=== PATIENT | female | born 1935 | race Caucasian/White ===

== ENCOUNTER 2017-04-18 12:32 | Inpatient (IN) | payer MEDICAID, OTHER ==
[~2017-04-18] VITALS: Ht 157.5 cm; Wt 78.6 kg
[~2017-04-18 12:32] MED LIST: CARV25TA55 PO; FAMO20TA8 PO; FERR-31 PO; FOLI0.8T2 PO; INSU100V11 SQ; INSU3INS5 SQ; NOR10 PO; OXYC-133 PO
[2017-04-18 12:40] VITALS: BP_SYST 161
[2017-04-18] MEDS ORDERED: NACL 0.9% 1,000 ML IV ONE (12:41)
[2017-04-18 13:22] LABS: BASOPHILS % (AUTO) 0.3 % (0.0-2.0); EOSINOPHILS # (AUTO) 0.4 K/uL (0.0-0.4); EOSINOPHILS % (AUTO) 2.5 % (0.0-4.0); HEMATOCRIT 30.6 % (36-48); HEMOGLOBIN 9.6 g/dL (12.0-16.0); LYMPHOCYTES # (AUTO) 2.1 K/uL (1.0-5.5); LYMPHOCYTES % (AUTO) 13.9 % (20.5-51.5); MEAN CORPUSCULAR HEMOGLOBIN 27 pg (27-31); MEAN CORPUSCULAR HGB CONC 31 % (32-36); MEAN CORPUSCULAR VOLUME 86 fL (79.0-98.0); MONOCYTES # (AUTO) 1.1 K/uL (0.0-1.0); MONOCYTES % (AUTO) 7.2 % (1.7-9.3); NEUTROPHILS # (AUTO) 11.4 K/uL (1.8-7.7); NEUTROPHILS % (AUTO) 76.1 % (40.0-70.0); PLATELET COUNT (AUTO) 195 K/uL (130-430); RED BLOOD CELL COUNT(AUTO) 3.57 MIL/uL (4.2-6.2); RED CELL DISTRIBUTION WIDTH 16.9 % (9.0-15.0)
[2017-04-18 13:30] LABS: ANION GAP 9 (5-15); CALCIUM 8.2 mg/dL (8.4-11.0); CHLORIDE 101 mmol/L (98-107); CREATININE 2.47 mg/dL (0.55-1.30); GLUCOSE 207 mg/dL (70-99); POTASSIUM 3.5 mmol/L (3.5-5.1); SODIUM SERUM 140 mmol/L (136-145); UREA NITROGEN, BLOOD 21 mg/dL (8-21)
[2017-04-18 13:32] LABS: INR 1.1 (0.8-1.2); PROTHROMBIN TIME 12.3 SECS (9.5-12.5)
[2017-04-18 13:35] LABS: ASPARTATE AMINOTRANSFERASE 10 U/L (10-37); TOTAL BILIRUBIN 0.4 mg/dL (0.0-1.0); TOTAL PROTEIN, SERUM 6.3 g/dL (6.4-8.3)
[2017-04-18 13:36] LABS: AMYLASE 92 U/L (0-100); LIPASE 39 U/L (73-393)
[2017-04-18 13:49] LABS: ALANINE AMINOTRANSFERASE 6 U/L (12-78)
[2017-04-18] MEDS ORDERED: HYDR-1189 PO (15:12)
[2017-04-18] MEDS ORDERED: ZOLP5TAB7 PO (15:12)
[2017-04-18] MEDS ORDERED: ALPR0.5T8 (15:12)
[2017-04-18] MEDS ORDERED: PRED10TA PO (15:12)
[2017-04-18] MEDS ORDERED: VANCOMYCIN HCL 1,000 MG in NS 250 ML IV ONE (19:30)
[2017-04-18] MEDS ORDERED: LEVOFLOXACIN 500 MG/D5W 100 ML IV ONE ×2 (19:30→20:44)
[2017-04-18 19:45] VITALS: BP_SYST 111
[2017-04-18 20:03] VITALS: BP_SYST 111
[2017-04-18] MEDS ORDERED: HYDROcodone/ACETAMIN 5-325 MG TAB (NORCO/ VICODIN) PO SCH (20:15)
[2017-04-18] MEDS ORDERED: OXYCODONE/ACETAMINOPHEN *10*mg/325 mg TABLET PO SCH (20:15)
[2017-04-18] MEDS ORDERED: MILK OF MAGNESIA 30 ML UDC PO PRN (20:15)
[2017-04-18] MEDS ORDERED: LevALBUTEROL HCL 1.25 MG/0.5 ML *CONC.* VIAL.NEB (XOPENEX CONC.) INH PRN (20:30)
[2017-04-18] MEDS ORDERED: ACETAMINOPHEN 500 MG TABLET PO PRN (20:30)
[2017-04-18] MEDS ORDERED: VANCOMYCIN HCL 1000 MG/VIAL IV ONE (20:45)
[2017-04-18] MEDS ORDERED: MUPIROCIN NASAL 2% OINT. 1 GM NS SCH (21:00)
[2017-04-18] MEDS: LevALBUTEROL HCL 1.25 MG/0.5 ML *CONC.* VIAL.NEB (XOPENEX CONC.) INH SCH (23:42)
[2017-04-18 23:44] VITALS: BP_SYST 111
[2017-04-18] MEDS: FERROUS SULFATE 325 MG TABLET.DR PO SCH (23:57)
[2017-04-18] MEDS: MEGESTROL ACETATE 400 MG/10 ML UDC PO SCH (23:57)
[2017-04-18] MEDS: ZOLPIDEM TARTRATE 5 MG TABLET PO PRN (23:58)
[2017-04-19] MEDS: INSULIN REGULAR, HUMAN 100 UNITS/ML, 10 ML VIAL (novoLIN R) SUBCUT PRN ×3 (00:10→21:16)
[2017-04-19] MEDS: HYDROcodone/ACETAMIN 5-325 MG TAB (NORCO/ VICODIN) PO PRN ×5 (05:51→21:00)
[2017-04-19 06:44] LABS: ANION GAP 7 (5-15); CALCIUM 7.9 mg/dL (8.4-11.0); CHLORIDE 103 mmol/L (98-107); CREATININE 2.86 mg/dL (0.55-1.30); GLUCOSE 100 mg/dL (70-99); POTASSIUM 3.9 mmol/L (3.5-5.1); SODIUM SERUM 138 mmol/L (136-145); UREA NITROGEN, BLOOD 25 mg/dL (8-21)
[2017-04-19 06:55] LABS: EOSINOPHILS # (AUTO) 0.4 K/uL (0.0-0.4); EOSINOPHILS % (AUTO) 3.7 % (0.0-4.0); HEMATOCRIT 27.6 % (36-48); HEMOGLOBIN 8.5 g/dL (12.0-16.0); LYMPHOCYTES % (AUTO) 16.1 % (20.5-51.5); MEAN CORPUSCULAR HEMOGLOBIN 27 pg (27-31); MEAN CORPUSCULAR HGB CONC 31 % (32-36); MEAN CORPUSCULAR VOLUME 88 fL (79.0-98.0); MONOCYTES # (AUTO) 0.9 K/uL (0.0-1.0); MONOCYTES % (AUTO) 7.3 % (1.7-9.3); NEUTROPHILS # (AUTO) 8.8 K/uL (1.8-7.7); NEUTROPHILS % (AUTO) 72.9 % (40.0-70.0); PLATELET COUNT (AUTO) 188 K/uL (130-430); RED BLOOD CELL COUNT(AUTO) 3.15 MIL/uL (4.2-6.2); RED CELL DISTRIBUTION WIDTH 16.6 % (9.0-15.0); WHITE BLOOD COUNT (AUTO) 12.1 K/uL (4.8-10.8)
[2017-04-19] MEDS: CARVEDILOL 6.25 MG TABLET (COREG) PO SCH (10:02)
[2017-04-19] MEDS: PREDNISONE 10 MG TABLET PO SCH (10:02)
[2017-04-19] MEDS: amLODIPine BESYLATE 10 MG TABLET PO SCH (10:03)
[2017-04-19] MEDS: FERROUS SULFATE 325 MG TABLET.DR PO SCH ×2 (10:03→21:00)
[2017-04-19] MEDS: MEGESTROL ACETATE 400 MG/10 ML UDC PO SCH ×2 (10:03→20:59)
[2017-04-19] MEDS: FAMOTIDINE 20 MG TABLET PO SCH (11:14)
[2017-04-19] MEDS: ONDANSETRON HCL 4 MG/2 ML VIAL IVP PRN (11:15)
[2017-04-19] MEDS: MUPIROCIN 2% TOPICAL OINTMENT 22 GM TP SCH ×2 (11:17→21:00)
[2017-04-19 12:20] VITALS: BP_SYST 128
[2017-04-19] MEDS: LevALBUTEROL HCL 1.25 MG/0.5 ML *CONC.* VIAL.NEB (XOPENEX CONC.) INH SCH ×3 (15:30→23:27)
[2017-04-19 16:00] VITALS: BP_SYST 155
[2017-04-19] MEDS: DIPHENHYDRAMINE INJ 50 MG/ML VIAL IVP PRN (16:29)
[2017-04-19] MEDS: ZOLPIDEM TARTRATE 5 MG TABLET PO PRN (20:59)
[2017-04-19 21:58] VITALS: BP_SYST 120
[2017-04-20 01:10] VITALS: BP_SYST 120
[2017-04-20] MEDS: DIPHENHYDRAMINE INJ 50 MG/ML VIAL IVP PRN ×2 (03:05→11:18)
[2017-04-20] MEDS: LevALBUTEROL HCL 1.25 MG/0.5 ML *CONC.* VIAL.NEB (XOPENEX CONC.) INH SCH ×3 (07:30→23:27)
[2017-04-20 08:00] VITALS: BP_SYST 133
[2017-04-20] MEDS: FAMOTIDINE 20 MG TABLET PO SCH (08:33)
[2017-04-20] MEDS: FERROUS SULFATE 325 MG TABLET.DR PO SCH ×2 (08:33→20:27)
[2017-04-20] MEDS: ONDANSETRON HCL 4 MG/2 ML VIAL IVP PRN (08:36)
[2017-04-20] MEDS: CARVEDILOL 6.25 MG TABLET (COREG) PO SCH (08:36)
[2017-04-20] MEDS: amLODIPine BESYLATE 10 MG TABLET PO SCH (08:38)
[2017-04-20] MEDS: MUPIROCIN 2% TOPICAL OINTMENT 22 GM TP SCH ×2 (08:39→20:29)
[2017-04-20] MEDS: MEGESTROL ACETATE 400 MG/10 ML UDC PO SCH ×2 (10:23→20:23)
[2017-04-20] MEDS: PREDNISONE 10 MG TABLET PO SCH (10:23)
[2017-04-20] MEDS: HYDROcodone/ACETAMIN 5-325 MG TAB (NORCO/ VICODIN) PO PRN ×2 (11:20→20:07)
[2017-04-20 12:00] VITALS: BP_SYST 112
[2017-04-20 17:17] VITALS: BP_SYST 115
[2017-04-20] MEDS: INSULIN REGULAR, HUMAN 100 UNITS/ML, 10 ML VIAL (novoLIN R) SUBCUT PRN ×2 (17:47→20:31)
[2017-04-20 20:00] VITALS: BP_SYST 123
[2017-04-20] MEDS: VANCOMYCIN HCL 750 MG in NS 250 ML IV SCH (20:25)
[2017-04-20] MEDS: ANTIFUNGAL CLEAR OINTMENT TP SCH (20:51)
[2017-04-21 00:06] VITALS: BP_SYST 130
[2017-04-21 03:39] VITALS: BP_SYST 133
[2017-04-21] MEDS: HYDROcodone/ACETAMIN 5-325 MG TAB (NORCO/ VICODIN) PO PRN ×3 (06:18→21:42)
[2017-04-21] MEDS: INSULIN REGULAR, HUMAN 100 UNITS/ML, 10 ML VIAL (novoLIN R) SUBCUT PRN ×4 (06:26→21:18)
[2017-04-21] MEDS: LevALBUTEROL HCL 1.25 MG/0.5 ML *CONC.* VIAL.NEB (XOPENEX CONC.) INH SCH ×3 (07:00→23:07)
[2017-04-21 08:16] VITALS: BP_SYST 143
[2017-04-21 08:24] LABS: BASOPHILS % (AUTO) 0.1 % (0.0-2.0); EOSINOPHILS # (AUTO) 0.2 K/uL (0.0-0.4); EOSINOPHILS % (AUTO) 1.3 % (0.0-4.0); HEMATOCRIT 27.3 % (36-48); HEMOGLOBIN 8.5 g/dL (12.0-16.0); LYMPHOCYTES # (AUTO) 1.7 K/uL (1.0-5.5); LYMPHOCYTES % (AUTO) 14.6 % (20.5-51.5); MEAN CORPUSCULAR HEMOGLOBIN 27 pg (27-31); MEAN CORPUSCULAR HGB CONC 31 % (32-36); MEAN CORPUSCULAR VOLUME 87 fL (79.0-98.0); MONOCYTES # (AUTO) 0.7 K/uL (0.0-1.0); MONOCYTES % (AUTO) 5.5 % (1.7-9.3); NEUTROPHILS # (AUTO) 9.3 K/uL (1.8-7.7); NEUTROPHILS % (AUTO) 78.5 % (40.0-70.0); PLATELET COUNT (AUTO) 229 K/uL (130-430); RED BLOOD CELL COUNT(AUTO) 3.16 MIL/uL (4.2-6.2); WHITE BLOOD COUNT (AUTO) 11.9 K/uL (4.8-10.8)
[2017-04-21 08:33] LABS: ANION GAP 7 (5-15); CALCIUM 8.3 mg/dL (8.4-11.0); CHLORIDE 100 mmol/L (98-107); CREATININE 3.04 mg/dL (0.55-1.30); GLUCOSE 141 mg/dL (70-99); POTASSIUM 4.2 mmol/L (3.5-5.1); SODIUM SERUM 136 mmol/L (136-145); UREA NITROGEN, BLOOD 31 mg/dL (8-21)
[2017-04-21] MEDS: MEGESTROL ACETATE 400 MG/10 ML UDC PO SCH ×2 (09:09→21:14)
[2017-04-21] MEDS: PREDNISONE 10 MG TABLET PO SCH (09:11)
[2017-04-21] MEDS: amLODIPine BESYLATE 10 MG TABLET PO SCH (09:11)
[2017-04-21] MEDS: FERROUS SULFATE 325 MG TABLET.DR PO SCH ×2 (09:11→21:14)
[2017-04-21] MEDS: FAMOTIDINE 20 MG TABLET PO SCH (09:11)
[2017-04-21] MEDS: CARVEDILOL 6.25 MG TABLET (COREG) PO SCH (09:12)
[2017-04-21] MEDS: BALSAM PERU/CASTOR OIL 60 GM OINT...G. TP SCH (09:12)
[2017-04-21] MEDS: MUPIROCIN 2% TOPICAL OINTMENT 22 GM TP SCH ×2 (09:12→21:00)
[2017-04-21] MEDS: ANTIFUNGAL CLEAR OINTMENT TP SCH ×2 (09:13→21:14)
[2017-04-21 13:02] VITALS: BP_SYST 131
[2017-04-21 17:26] VITALS: BP_SYST 113
[2017-04-21 20:00] VITALS: BP_SYST 148
[2017-04-22] VITALS (7 sets, daily range): BP systolic 122–150
[2017-04-22] MEDS: HYDROcodone/ACETAMIN 5-325 MG TAB (NORCO/ VICODIN) PO PRN ×4 (06:32→23:44)
[2017-04-22] MEDS: LevALBUTEROL HCL 1.25 MG/0.5 ML *CONC.* VIAL.NEB (XOPENEX CONC.) INH SCH ×2 (08:14→18:05)
[2017-04-22] MEDS: PREDNISONE 10 MG TABLET PO SCH (08:40)
[2017-04-22] MEDS: CARVEDILOL 6.25 MG TABLET (COREG) PO SCH (08:40)
[2017-04-22] MEDS: BALSAM PERU/CASTOR OIL 60 GM OINT...G. TP SCH (08:40)
[2017-04-22] MEDS: FERROUS SULFATE 325 MG TABLET.DR PO SCH ×2 (08:40→21:00)
[2017-04-22] MEDS: FAMOTIDINE 20 MG TABLET PO SCH (08:40)
[2017-04-22] MEDS: ANTIFUNGAL CLEAR OINTMENT TP SCH ×2 (08:43→21:00)
[2017-04-22] MEDS: amLODIPine BESYLATE 10 MG TABLET PO SCH (08:43)
[2017-04-22] MEDS: MUPIROCIN 2% TOPICAL OINTMENT 22 GM TP SCH ×2 (08:44→21:00)
[2017-04-22] MEDS: MEGESTROL ACETATE 400 MG/10 ML UDC PO SCH ×2 (08:45→21:00)
[2017-04-22] MEDS: INSULIN REGULAR, HUMAN 100 UNITS/ML, 10 ML VIAL (novoLIN R) SUBCUT PRN ×2 (11:08→17:17)
[2017-04-22] MEDS: DIPHENHYDRAMINE INJ 50 MG/ML VIAL IVP PRN (15:14)
[2017-04-22 19:56] LABS: PROTHROMBIN TIME 11.3 SECS (9.5-12.5)
[2017-04-22] MEDS: VANCOMYCIN HCL 750 MG in NS 250 ML IV SCH (21:00)
[2017-04-23] MEDS: LevALBUTEROL HCL 1.25 MG/0.5 ML *CONC.* VIAL.NEB (XOPENEX CONC.) INH SCH ×3 (00:53→15:54)
[2017-04-23 04:00] VITALS: BP_SYST 141
[2017-04-23 08:04] VITALS: BP_SYST 155
[2017-04-23] MEDS: MEGESTROL ACETATE 400 MG/10 ML UDC PO SCH ×2 (09:14→21:32)
[2017-04-23] MEDS: PREDNISONE 10 MG TABLET PO SCH (09:14)
[2017-04-23] MEDS: CARVEDILOL 6.25 MG TABLET (COREG) PO SCH (09:15)
[2017-04-23] MEDS: amLODIPine BESYLATE 10 MG TABLET PO SCH (09:16)
[2017-04-23] MEDS: FAMOTIDINE 20 MG TABLET PO SCH (09:16)
[2017-04-23] MEDS: FERROUS SULFATE 325 MG TABLET.DR PO SCH ×2 (09:16→21:32)
[2017-04-23] MEDS: BALSAM PERU/CASTOR OIL 60 GM OINT...G. TP SCH (09:18)
[2017-04-23] MEDS: HYDROcodone/ACETAMIN 5-325 MG TAB (NORCO/ VICODIN) PO PRN ×3 (09:18→19:14)
[2017-04-23] MEDS: MUPIROCIN 2% TOPICAL OINTMENT 22 GM TP SCH ×2 (09:19→21:32)
[2017-04-23] MEDS: ANTIFUNGAL CLEAR OINTMENT TP SCH ×2 (09:19→21:57)
[2017-04-23] MEDS: INSULIN REGULAR, HUMAN 100 UNITS/ML, 10 ML VIAL (novoLIN R) SUBCUT PRN ×3 (12:21→21:56)
[2017-04-23 12:43] VITALS: BP_SYST 134
[2017-04-23 15:54] VITALS: BP_SYST 135
[2017-04-23 17:38] VITALS: BP_SYST 135; BP_SYST 156
[2017-04-23 21:59] VITALS: BP_SYST 140
[2017-04-24] VITALS (7 sets, daily range): BP systolic 129–161
[2017-04-24] MEDS ORDERED: D5/0.45 NS 1,000 ML IV SCH
[2017-04-24] MEDS: LevALBUTEROL HCL 1.25 MG/0.5 ML *CONC.* VIAL.NEB (XOPENEX CONC.) INH SCH ×3 (02:19→15:18)
[2017-04-24 07:41] LABS: BASOPHILS % (AUTO) 0.1 % (0.0-2.0); EOSINOPHILS # (AUTO) 0.1 K/uL (0.0-0.4); EOSINOPHILS % (AUTO) 0.5 % (0.0-4.0); HEMOGLOBIN 9.4 g/dL (12.0-16.0); MEAN CORPUSCULAR HEMOGLOBIN 27 pg (27-31); MEAN CORPUSCULAR HGB CONC 32 % (32-36); MEAN CORPUSCULAR VOLUME 85 fL (79.0-98.0); MONOCYTES # (AUTO) 0.7 K/uL (0.0-1.0); MONOCYTES % (AUTO) 5.3 % (1.7-9.3); NEUTROPHILS # (AUTO) 10.2 K/uL (1.8-7.7); NEUTROPHILS % (AUTO) 79.1 % (40.0-70.0); PLATELET COUNT (AUTO) 234 K/uL (130-430); RED BLOOD CELL COUNT(AUTO) 3.52 MIL/uL (4.2-6.2); RED CELL DISTRIBUTION WIDTH 17.1 % (9.0-15.0)
[2017-04-24 07:43] LABS: ALANINE AMINOTRANSFERASE 7 U/L (12-78); ALBUMIN 2.4 g/dL (3.4-4.8); ANION GAP 9 (5-15); ASPARTATE AMINOTRANSFERASE 14 U/L (10-37); CALCIUM 8.2 mg/dL (8.4-11.0); CHLORIDE 94 mmol/L (98-107); CREATININE 3.36 mg/dL (0.55-1.30); GLUCOSE 115 mg/dL (70-99); POTASSIUM 5.3 mmol/L (3.5-5.1); SODIUM SERUM 130 mmol/L (136-145); TOTAL BILIRUBIN 0.4 mg/dL (0.0-1.0); TOTAL PROTEIN, SERUM 5.9 g/dL (6.4-8.3); UREA NITROGEN, BLOOD 41 mg/dL (8-21)
[2017-04-24] MEDS: amLODIPine BESYLATE 10 MG TABLET PO SCH (09:00)
[2017-04-24] MEDS: CARVEDILOL 6.25 MG TABLET (COREG) PO SCH (09:00)
[2017-04-24] MEDS: FAMOTIDINE 20 MG TABLET PO SCH (09:58)
[2017-04-24] MEDS: MEGESTROL ACETATE 400 MG/10 ML UDC PO SCH ×2 (09:58→21:11)
[2017-04-24] MEDS: PREDNISONE 10 MG TABLET PO SCH (09:59)
[2017-04-24] MEDS: FERROUS SULFATE 325 MG TABLET.DR PO SCH ×2 (09:59→21:11)
[2017-04-24] MEDS: HYDROcodone/ACETAMIN 5-325 MG TAB (NORCO/ VICODIN) PO PRN ×3 (10:01→19:27)
[2017-04-24] MEDS: MUPIROCIN 2% TOPICAL OINTMENT 22 GM TP SCH ×2 (10:02→21:20)
[2017-04-24] MEDS: BALSAM PERU/CASTOR OIL 60 GM OINT...G. TP SCH (10:02)
[2017-04-24] MEDS: ANTIFUNGAL CLEAR OINTMENT TP SCH ×2 (10:02→21:21)
[2017-04-24] MEDS: INSULIN REGULAR, HUMAN 100 UNITS/ML, 10 ML VIAL (novoLIN R) SUBCUT PRN ×3 (12:57→21:16)
[2017-04-24] MEDS: VANCOMYCIN HCL 750 MG in NS 250 ML IV SCH (21:13)
[2017-04-25 00:09] VITALS: BP_SYST 136
[2017-04-25] MEDS: LevALBUTEROL HCL 1.25 MG/0.5 ML *CONC.* VIAL.NEB (XOPENEX CONC.) INH SCH ×4 (02:40→23:00)
[2017-04-25 03:38] VITALS: BP_SYST 148
[2017-04-25] MEDS: DIPHENHYDRAMINE HCL 25 MG CAPSULE PO PRN ×2 (08:34→21:03)
[2017-04-25] MEDS: FAMOTIDINE 20 MG TABLET PO SCH (08:34)
[2017-04-25] MEDS: FERROUS SULFATE 325 MG TABLET.DR PO SCH ×2 (08:34→21:03)
[2017-04-25] MEDS: MEGESTROL ACETATE 400 MG/10 ML UDC PO SCH ×2 (08:35→21:03)
[2017-04-25] MEDS: amLODIPine BESYLATE 10 MG TABLET PO SCH (08:35)
[2017-04-25] MEDS: CARVEDILOL 6.25 MG TABLET (COREG) PO SCH (08:35)
[2017-04-25] MEDS: PREDNISONE 10 MG TABLET PO SCH (08:35)
[2017-04-25] MEDS: MUPIROCIN 2% TOPICAL OINTMENT 22 GM TP SCH ×2 (08:36→21:04)
[2017-04-25 08:50] LABS: BASOPHILS % (AUTO) 0.1 % (0.0-2.0); EOSINOPHILS # (AUTO) 0.1 K/uL (0.0-0.4); EOSINOPHILS % (AUTO) 0.5 % (0.0-4.0); LYMPHOCYTES # (AUTO) 1.7 K/uL (1.0-5.5); LYMPHOCYTES % (AUTO) 14.7 % (20.5-51.5); MEAN CORPUSCULAR HEMOGLOBIN 26 pg (27-31); MEAN CORPUSCULAR HGB CONC 31 % (32-36); MEAN CORPUSCULAR VOLUME 85 fL (79.0-98.0); MONOCYTES # (AUTO) 0.6 K/uL (0.0-1.0); MONOCYTES % (AUTO) 5.3 % (1.7-9.3); NEUTROPHILS # (AUTO) 9.5 K/uL (1.8-7.7); NEUTROPHILS % (AUTO) 79.4 % (40.0-70.0); PLATELET COUNT (AUTO) 244 K/uL (130-430); RED CELL DISTRIBUTION WIDTH 17.8 % (9.0-15.0); WHITE BLOOD COUNT (AUTO) 11.9 K/uL (4.8-10.8)
[2017-04-25] MEDS: HYDROcodone/ACETAMIN 5-325 MG TAB (NORCO/ VICODIN) PO PRN ×2 (08:50→14:30)
[2017-04-25 09:00] LABS: ANION GAP 8 (5-15); CHLORIDE 94 mmol/L (98-107); CREATININE 2.72 mg/dL (0.55-1.30); GLUCOSE 142 mg/dL (70-99); POTASSIUM 4.1 mmol/L (3.5-5.1); SODIUM SERUM 132 mmol/L (136-145); UREA NITROGEN, BLOOD 28 mg/dL (8-21)
[2017-04-25 09:29] VITALS: BP_SYST 144
[2017-04-25 11:32] VITALS: BP_SYST 114
[2017-04-25] MEDS: INSULIN REGULAR, HUMAN 100 UNITS/ML, 10 ML VIAL (novoLIN R) SUBCUT PRN ×3 (11:42→21:58)
[2017-04-25] MEDS: ANTIFUNGAL CLEAR OINTMENT TP SCH ×2 (14:35→21:05)
[2017-04-25] MEDS: BALSAM PERU/CASTOR OIL 60 GM OINT...G. TP SCH (14:36)
[2017-04-25 15:37] VITALS: BP_SYST 123
[2017-04-25] MEDS: ZOLPIDEM TARTRATE 5 MG TABLET PO PRN (22:33)
[2017-04-26] VITALS (7 sets, daily range): BP systolic 116–164
[2017-04-26 07:15] LABS: EOSINOPHILS # (AUTO) 0.1 K/uL (0.0-0.4); EOSINOPHILS % (AUTO) 0.6 % (0.0-4.0); HEMOGLOBIN 8.3 g/dL (12.0-16.0); LYMPHOCYTES # (AUTO) 1.6 K/uL (1.0-5.5); LYMPHOCYTES % (AUTO) 13.8 % (20.5-51.5); MEAN CORPUSCULAR HEMOGLOBIN 27 pg (27-31); MEAN CORPUSCULAR HGB CONC 32 % (32-36); MEAN CORPUSCULAR VOLUME 86 fL (79.0-98.0); MONOCYTES # (AUTO) 0.5 K/uL (0.0-1.0); MONOCYTES % (AUTO) 4.4 % (1.7-9.3); NEUTROPHILS # (AUTO) 9.3 K/uL (1.8-7.7); NEUTROPHILS % (AUTO) 81.2 % (40.0-70.0); PLATELET COUNT (AUTO) 229 K/uL (130-430); RED BLOOD CELL COUNT(AUTO) 3.04 MIL/uL (4.2-6.2); RED CELL DISTRIBUTION WIDTH 17.8 % (9.0-15.0); WHITE BLOOD COUNT (AUTO) 11.5 K/uL (4.8-10.8)
[2017-04-26 07:36] LABS: ANION GAP 8 (5-15); CALCIUM 7.7 mg/dL (8.4-11.0); CHLORIDE 91 mmol/L (98-107); CREATININE 3.65 mg/dL (0.55-1.30); GLUCOSE 140 mg/dL (70-99); PHOSPHORUS 4.7 mg/dL (2.7-4.5); POTASSIUM 4.4 mmol/L (3.5-5.1); SODIUM SERUM 127 mmol/L (136-145); UREA NITROGEN, BLOOD 44 mg/dL (8-21)
[2017-04-26] MEDS: LevALBUTEROL HCL 1.25 MG/0.5 ML *CONC.* VIAL.NEB (XOPENEX CONC.) INH SCH ×3 (08:08→23:16)
[2017-04-26] MEDS: HYDROcodone/ACETAMIN 5-325 MG TAB (NORCO/ VICODIN) PO PRN ×2 (09:27→18:26)
[2017-04-26] MEDS: CARVEDILOL 6.25 MG TABLET (COREG) PO SCH (09:28)
[2017-04-26] MEDS: FERROUS SULFATE 325 MG TABLET.DR PO SCH ×2 (09:29→21:30)
[2017-04-26] MEDS: MEGESTROL ACETATE 400 MG/10 ML UDC PO SCH ×2 (09:29→21:30)
[2017-04-26] MEDS: amLODIPine BESYLATE 10 MG TABLET PO SCH (09:29)
[2017-04-26] MEDS: FAMOTIDINE 20 MG TABLET PO SCH (09:29)
[2017-04-26] MEDS: PREDNISONE 10 MG TABLET PO SCH (09:29)
[2017-04-26] MEDS: MUPIROCIN 2% TOPICAL OINTMENT 22 GM TP SCH ×2 (09:30→21:31)
[2017-04-26] MEDS: ANTIFUNGAL CLEAR OINTMENT TP SCH ×2 (09:30→21:33)
[2017-04-26] MEDS: DIPHENHYDRAMINE HCL 25 MG CAPSULE PO PRN ×2 (09:30→18:26)
[2017-04-26] MEDS: BALSAM PERU/CASTOR OIL 60 GM OINT...G. TP SCH (09:30)
[2017-04-26] MEDS: INSULIN REGULAR, HUMAN 100 UNITS/ML, 10 ML VIAL (novoLIN R) SUBCUT PRN ×2 (12:08→23:00)
[2017-04-26] MEDS: VANCOMYCIN HCL 750 MG in NS 250 ML IV SCH (21:15)
[2017-04-26] MEDS: ZOLPIDEM TARTRATE 5 MG TABLET PO PRN (22:46)
[2017-04-27] VITALS (7 sets, daily range): BP systolic 133–156
[2017-04-27] MEDS: DIPHENHYDRAMINE HCL 25 MG CAPSULE PO PRN ×2 (03:09→18:16)
[2017-04-27] MEDS: HYDROcodone/ACETAMIN 5-325 MG TAB (NORCO/ VICODIN) PO PRN ×3 (03:10→22:00)
[2017-04-27 07:03] LABS: BASOPHILS % (AUTO) 0.1 % (0.0-2.0); EOSINOPHILS % (AUTO) 0.3 % (0.0-4.0); HEMATOCRIT 24.8 % (36-48); HEMOGLOBIN 7.9 g/dL (12.0-16.0); LYMPHOCYTES # (AUTO) 1.3 K/uL (1.0-5.5); LYMPHOCYTES % (AUTO) 12.4 % (20.5-51.5); MEAN CORPUSCULAR HEMOGLOBIN 27 pg (27-31); MEAN CORPUSCULAR HGB CONC 32 % (32-36); MEAN CORPUSCULAR VOLUME 85 fL (79.0-98.0); MONOCYTES # (AUTO) 0.5 K/uL (0.0-1.0); MONOCYTES % (AUTO) 4.8 % (1.7-9.3); NEUTROPHILS # (AUTO) 8.4 K/uL (1.8-7.7); NEUTROPHILS % (AUTO) 82.4 % (40.0-70.0); PLATELET COUNT (AUTO) 217 K/uL (130-430); RED BLOOD CELL COUNT(AUTO) 2.91 MIL/uL (4.2-6.2); WHITE BLOOD COUNT (AUTO) 10.2 K/uL (4.8-10.8)
[2017-04-27 07:19] LABS: ALANINE AMINOTRANSFERASE 5 U/L (12-78); ALBUMIN 2.1 g/dL (3.4-4.8); ANION GAP 7 (5-15); ASPARTATE AMINOTRANSFERASE 7 U/L (10-37); CALCIUM 7.7 mg/dL (8.4-11.0); CHLORIDE 90 mmol/L (98-107); CREATININE 4.13 mg/dL (0.55-1.30); GLUCOSE 197 mg/dL (70-99); POTASSIUM 4.8 mmol/L (3.5-5.1); SODIUM SERUM 122 mmol/L (136-145); TOTAL BILIRUBIN 0.3 mg/dL (0.0-1.0); TOTAL PROTEIN, SERUM 5.5 g/dL (6.4-8.3); UREA NITROGEN, BLOOD 57 mg/dL (8-21)
[2017-04-27] MEDS: LevALBUTEROL HCL 1.25 MG/0.5 ML *CONC.* VIAL.NEB (XOPENEX CONC.) INH SCH ×3 (07:46→23:57)
[2017-04-27] MEDS ORDERED: MIDAZOLAM HCL 5 MG/5 ML VIAL IVP ONE (10:31)
[2017-04-27] MEDS ORDERED: D5W 250 ML IV.SOLN IV ONE (10:31)
[2017-04-27] MEDS ORDERED: NS 250 ML BAG IV ONE (10:31)
[2017-04-27] MEDS ORDERED: PROPOFOL 200MG/ 20ML VIAL (DIPRIVAN) IV ONE (10:31)
[2017-04-27] MEDS ORDERED: NACL 0.9% 1,000 ML IV SCH (11:33)
[2017-04-27] MEDS ORDERED: ONDANSETRON HCL 4 MG/2 ML VIAL IVP PRN (11:45)
[2017-04-27] MEDS: MORPHINE 4 MG/ML INJ. SYRINGE IVP PRN ×2 (12:17→12:21)
[2017-04-27] MEDS ORDERED: MORPHINE 4 MG/ML INJ. SYRINGE ONE (12:22)
[2017-04-27] MEDS: FERROUS SULFATE 325 MG TABLET.DR PO SCH ×2 (14:18→20:28)
[2017-04-27] MEDS: PREDNISONE 10 MG TABLET PO SCH (14:18)
[2017-04-27] MEDS: MEGESTROL ACETATE 400 MG/10 ML UDC PO SCH ×2 (14:18→20:27)
[2017-04-27] MEDS: FAMOTIDINE 20 MG TABLET PO SCH (14:18)
[2017-04-27] MEDS: INSULIN REGULAR, HUMAN 100 UNITS/ML, 10 ML VIAL (novoLIN R) SUBCUT PRN ×2 (17:27→20:38)
[2017-04-27] MEDS: BALSAM PERU/CASTOR OIL 60 GM OINT...G. TP SCH (17:46)
[2017-04-27] MEDS: ANTIFUNGAL CLEAR OINTMENT TP SCH ×2 (17:48→20:38)
[2017-04-27] MEDS: MUPIROCIN 2% TOPICAL OINTMENT 22 GM TP SCH ×2 (17:50→20:28)
[2017-04-27] MEDS: ZOLPIDEM TARTRATE 5 MG TABLET PO PRN (20:28)
[2017-04-27] MEDS: amLODIPine BESYLATE 10 MG TABLET PO SCH (20:32)
[2017-04-27] MEDS: CARVEDILOL 6.25 MG TABLET (COREG) PO SCH (20:32)
[2017-04-28] VITALS: BP_SYST 123
[2017-04-28] MEDS: HYDROcodone/ACETAMIN 5-325 MG TAB (NORCO/ VICODIN) PO PRN ×2 (04:03→09:07)
[2017-04-28 04:48] VITALS: BP_SYST 139
[2017-04-28] MEDS: LevALBUTEROL HCL 1.25 MG/0.5 ML *CONC.* VIAL.NEB (XOPENEX CONC.) INH SCH ×3 (06:51→23:14)
[2017-04-28 08:00] VITALS: BP_SYST 139
[2017-04-28] MEDS: FERROUS SULFATE 325 MG TABLET.DR PO SCH ×2 (09:06→21:00)
[2017-04-28] MEDS: MEGESTROL ACETATE 400 MG/10 ML UDC PO SCH ×2 (09:06→21:00)
[2017-04-28] MEDS: MUPIROCIN 2% TOPICAL OINTMENT 22 GM TP SCH ×2 (09:07→21:00)
[2017-04-28] MEDS: amLODIPine BESYLATE 10 MG TABLET PO SCH (09:08)
[2017-04-28] MEDS: FAMOTIDINE 20 MG TABLET PO SCH (09:08)
[2017-04-28] MEDS: DIPHENHYDRAMINE HCL 25 MG CAPSULE PO PRN ×2 (09:08→19:41)
[2017-04-28] MEDS: PREDNISONE 10 MG TABLET PO SCH (09:08)
[2017-04-28] MEDS: CARVEDILOL 6.25 MG TABLET (COREG) PO SCH (09:14)
[2017-04-28] MEDS: ANTIFUNGAL CLEAR OINTMENT TP SCH ×2 (09:28→21:12)
[2017-04-28] MEDS: BALSAM PERU/CASTOR OIL 60 GM OINT...G. TP SCH (09:28)
[2017-04-28 12:03] VITALS: BP_SYST 132
[2017-04-28] MEDS: INSULIN REGULAR, HUMAN 100 UNITS/ML, 10 ML VIAL (novoLIN R) SUBCUT PRN ×3 (12:16→21:12)
[2017-04-28 16:26] VITALS: BP_SYST 124
[2017-04-28] MEDS ORDERED: HYDROcodone/ACETAMIN 5-325 MG TAB (NORCO/ VICODIN) PO ONE (19:15)
[2017-04-28 20:00] VITALS: BP_SYST 145
[2017-04-28] MEDS: VANCOMYCIN HCL 750 MG in NS 250 ML IV SCH (20:59)
[2017-04-29 00:26] VITALS: BP_SYST 131
[2017-04-29 04:07] VITALS: BP_SYST 130
[2017-04-29] MEDS: DIPHENHYDRAMINE HCL 25 MG CAPSULE PO PRN ×2 (05:45→14:20)
[2017-04-29] MEDS: HYDROcodone/ACETAMIN 5-325 MG TAB (NORCO/ VICODIN) PO PRN ×2 (05:46→14:21)
[2017-04-29] MEDS: INSULIN REGULAR, HUMAN 100 UNITS/ML, 10 ML VIAL (novoLIN R) SUBCUT PRN ×3 (06:04→18:04)
[2017-04-29] MEDS: LevALBUTEROL HCL 1.25 MG/0.5 ML *CONC.* VIAL.NEB (XOPENEX CONC.) INH SCH ×2 (07:34→23:36)
[2017-04-29 08:00] VITALS: BP_SYST 137
[2017-04-29] MEDS: amLODIPine BESYLATE 10 MG TABLET PO SCH (09:00)
[2017-04-29] MEDS: CARVEDILOL 6.25 MG TABLET (COREG) PO SCH (09:00)
[2017-04-29] MEDS: MEGESTROL ACETATE 400 MG/10 ML UDC PO SCH ×2 (09:49→20:24)
[2017-04-29] MEDS: FERROUS SULFATE 325 MG TABLET.DR PO SCH ×2 (09:50→20:25)
[2017-04-29] MEDS: PREDNISONE 10 MG TABLET PO SCH (09:50)
[2017-04-29] MEDS: FAMOTIDINE 20 MG TABLET PO SCH (09:50)
[2017-04-29] MEDS: ANTIFUNGAL CLEAR OINTMENT TP SCH ×2 (09:51→20:25)
[2017-04-29] MEDS: MUPIROCIN 2% TOPICAL OINTMENT 22 GM TP SCH ×2 (09:52→20:27)
[2017-04-29] MEDS: BALSAM PERU/CASTOR OIL 60 GM OINT...G. TP SCH (12:32)
[2017-04-29 13:22] VITALS: BP_SYST 149
[2017-04-29 18:29] VITALS: BP_SYST 112
[2017-04-29 20:00] VITALS: BP_SYST 154
[2017-04-30] VITALS (7 sets, daily range): BP systolic 136–150
[2017-04-30] MEDS: DIPHENHYDRAMINE HCL 25 MG CAPSULE PO PRN ×2 (05:58→22:00)
[2017-04-30] MEDS: HYDROcodone/ACETAMIN 5-325 MG TAB (NORCO/ VICODIN) PO PRN ×4 (05:58→22:01)
[2017-04-30] MEDS: INSULIN REGULAR, HUMAN 100 UNITS/ML, 10 ML VIAL (novoLIN R) SUBCUT PRN ×4 (06:06→22:09)
[2017-04-30 06:51] LABS: BASOPHILS % (AUTO) 0.1 % (0.0-2.0); EOSINOPHILS # (AUTO) 0.1 K/uL (0.0-0.4); EOSINOPHILS % (AUTO) 1.6 % (0.0-4.0); HEMOGLOBIN 8.3 g/dL (12.0-16.0); LYMPHOCYTES # (AUTO) 1.2 K/uL (1.0-5.5); LYMPHOCYTES % (AUTO) 14.5 % (20.5-51.5); MEAN CORPUSCULAR HEMOGLOBIN 27 pg (27-31); MEAN CORPUSCULAR HGB CONC 32 % (32-36); MEAN CORPUSCULAR VOLUME 85 fL (79.0-98.0); MONOCYTES # (AUTO) 0.7 K/uL (0.0-1.0); MONOCYTES % (AUTO) 8.8 % (1.7-9.3); PLATELET COUNT (AUTO) 216 K/uL (130-430); RED BLOOD CELL COUNT(AUTO) 3.07 MIL/uL (4.2-6.2); RED CELL DISTRIBUTION WIDTH 17.8 % (9.0-15.0)
[2017-04-30] MEDS: LevALBUTEROL HCL 1.25 MG/0.5 ML *CONC.* VIAL.NEB (XOPENEX CONC.) INH SCH ×3 (07:15→23:18)
[2017-04-30 07:17] LABS: ANION GAP 7 (5-15); CALCIUM 7.5 mg/dL (8.4-11.0); CHLORIDE 92 mmol/L (98-107); CREATININE 3.03 mg/dL (0.55-1.30); GLUCOSE 168 mg/dL (70-99); POTASSIUM 3.7 mmol/L (3.5-5.1); SODIUM SERUM 127 mmol/L (136-145); UREA NITROGEN, BLOOD 40 mg/dL (8-21)
[2017-04-30] MEDS: FERROUS SULFATE 325 MG TABLET.DR PO SCH ×2 (09:19→22:01)
[2017-04-30] MEDS: amLODIPine BESYLATE 10 MG TABLET PO SCH (09:19)
[2017-04-30] MEDS: PREDNISONE 10 MG TABLET PO SCH (09:20)
[2017-04-30] MEDS: CARVEDILOL 6.25 MG TABLET (COREG) PO SCH (09:20)
[2017-04-30] MEDS: ANTIFUNGAL CLEAR OINTMENT TP SCH ×2 (09:20→22:02)
[2017-04-30] MEDS: FAMOTIDINE 20 MG TABLET PO SCH (09:20)
[2017-04-30] MEDS: MEGESTROL ACETATE 400 MG/10 ML UDC PO SCH ×2 (09:20→22:00)
[2017-04-30] MEDS: MUPIROCIN 2% TOPICAL OINTMENT 22 GM TP SCH ×2 (09:20→22:00)
[2017-04-30] MEDS: BALSAM PERU/CASTOR OIL 60 GM OINT...G. TP SCH (09:21)
[2017-04-30] MEDS: VANCOMYCIN HCL 750 MG in NS 250 ML IV SCH (22:00)
[2017-05-01 04:02] VITALS: BP_SYST 155
[2017-05-01] MEDS: HYDROcodone/ACETAMIN 5-325 MG TAB (NORCO/ VICODIN) PO PRN ×4 (05:08→21:41)
[2017-05-01] MEDS: LevALBUTEROL HCL 1.25 MG/0.5 ML *CONC.* VIAL.NEB (XOPENEX CONC.) INH SCH ×3 (07:15→23:49)
[2017-05-01 08:00] VITALS: BP_SYST 164
[2017-05-01] MEDS: MEGESTROL ACETATE 400 MG/10 ML UDC PO SCH ×2 (10:00→21:34)
[2017-05-01] MEDS: MUPIROCIN 2% TOPICAL OINTMENT 22 GM TP SCH ×2 (10:01→21:35)
[2017-05-01] MEDS: amLODIPine BESYLATE 10 MG TABLET PO SCH (10:01)
[2017-05-01] MEDS: ANTIFUNGAL CLEAR OINTMENT TP SCH ×2 (10:03→21:35)
[2017-05-01] MEDS: PREDNISONE 10 MG TABLET PO SCH (10:03)
[2017-05-01] MEDS: CARVEDILOL 6.25 MG TABLET (COREG) PO SCH (10:03)
[2017-05-01] MEDS: FAMOTIDINE 20 MG TABLET PO SCH (10:03)
[2017-05-01] MEDS: FERROUS SULFATE 325 MG TABLET.DR PO SCH ×2 (10:03→21:34)
[2017-05-01] MEDS: BALSAM PERU/CASTOR OIL 60 GM OINT...G. TP SCH (10:16)
[2017-05-01 13:13] VITALS: BP_SYST 137
[2017-05-01] MEDS: INSULIN REGULAR, HUMAN 100 UNITS/ML, 10 ML VIAL (novoLIN R) SUBCUT PRN ×3 (13:33→21:39)
[2017-05-01 16:51] VITALS: BP_SYST 135
[2017-05-01 20:06] VITALS: BP_SYST 134
[2017-05-01] MEDS: DIPHENHYDRAMINE HCL 25 MG CAPSULE PO PRN (21:34)
[2017-05-02 00:12] VITALS: BP_SYST 148
[2017-05-02 04:32] VITALS: BP_SYST 143
[2017-05-02] MEDS: DIPHENHYDRAMINE HCL 25 MG CAPSULE PO PRN ×4 (06:28→23:47)
[2017-05-02] MEDS: HYDROcodone/ACETAMIN 5-325 MG TAB (NORCO/ VICODIN) PO PRN ×5 (06:28→23:48)
[2017-05-02 08:00] VITALS: BP_SYST 149
[2017-05-02] MEDS: LevALBUTEROL HCL 1.25 MG/0.5 ML *CONC.* VIAL.NEB (XOPENEX CONC.) INH SCH ×3 (08:19→23:32)
[2017-05-02] MEDS: MEGESTROL ACETATE 400 MG/10 ML UDC PO SCH ×2 (08:45→23:47)
[2017-05-02] MEDS: BALSAM PERU/CASTOR OIL 60 GM OINT...G. TP SCH (08:45)
[2017-05-02] MEDS: MUPIROCIN 2% TOPICAL OINTMENT 22 GM TP SCH (08:45)
[2017-05-02] MEDS: PREDNISONE 10 MG TABLET PO SCH (08:47)
[2017-05-02] MEDS: amLODIPine BESYLATE 10 MG TABLET PO SCH (08:47)
[2017-05-02] MEDS: FERROUS SULFATE 325 MG TABLET.DR PO SCH ×2 (08:47→23:47)
[2017-05-02] MEDS: FAMOTIDINE 20 MG TABLET PO SCH (08:47)
[2017-05-02] MEDS: CARVEDILOL 6.25 MG TABLET (COREG) PO SCH (08:48)
[2017-05-02] MEDS: ANTIFUNGAL CLEAR OINTMENT TP SCH ×2 (09:35→23:53)
[2017-05-02] MEDS: INSULIN REGULAR, HUMAN 100 UNITS/ML, 10 ML VIAL (novoLIN R) SUBCUT PRN ×3 (11:47→23:55)
[2017-05-02 12:38] VITALS: BP_SYST 141
[2017-05-02 16:29] VITALS: BP_SYST 140
[2017-05-02 20:31] VITALS: BP_SYST 134
[2017-05-02] MEDS: VANCOMYCIN HCL 750 MG in NS 250 ML IV SCH (23:47)
[2017-05-03] VITALS (8 sets, daily range): BP systolic 129–159
[2017-05-03] MEDS: INSULIN REGULAR, HUMAN 100 UNITS/ML, 10 ML VIAL (novoLIN R) SUBCUT PRN ×4 (07:00→21:40)
[2017-05-03] MEDS: LevALBUTEROL HCL 1.25 MG/0.5 ML *CONC.* VIAL.NEB (XOPENEX CONC.) INH SCH ×2 (07:13→15:20)
[2017-05-03] MEDS: HYDROcodone/ACETAMIN 5-325 MG TAB (NORCO/ VICODIN) PO PRN ×4 (07:36→21:49)
[2017-05-03] MEDS: FAMOTIDINE 20 MG TABLET PO SCH (08:54)
[2017-05-03] MEDS: DIPHENHYDRAMINE HCL 25 MG CAPSULE PO PRN ×2 (08:54→17:27)
[2017-05-03] MEDS: MEGESTROL ACETATE 400 MG/10 ML UDC PO SCH ×2 (08:54→21:39)
[2017-05-03] MEDS: amLODIPine BESYLATE 10 MG TABLET PO SCH (08:54)
[2017-05-03] MEDS: PREDNISONE 10 MG TABLET PO SCH (08:54)
[2017-05-03] MEDS: FERROUS SULFATE 325 MG TABLET.DR PO SCH ×2 (08:55→21:39)
[2017-05-03] MEDS: CARVEDILOL 6.25 MG TABLET (COREG) PO SCH (08:55)
[2017-05-03] MEDS: BALSAM PERU/CASTOR OIL 60 GM OINT...G. TP SCH (08:56)
[2017-05-03] MEDS: ANTIFUNGAL CLEAR OINTMENT TP SCH ×2 (08:57→21:39)
== END 2017-05-03 23:10 | disposition home health service (06) | DRG 710 ==
LOC: SED 12:32 → STU 19:03 → SMU 04-22 06:05
PROVIDERS: ADMIT Internal Medicine; ATTEND Family Medicine
PROC: 5A1D60Z (ICD-10-PCS; 2017-04-20)
PROC: 0QB10ZZ Excision of Sacrum, Open Approach (ICD-10-PCS; principal; 2017-04-27 10:30)
DX: A41.9 Sepsis, unspecified organism (principal); E43 Unspecified severe protein-calorie malnutrition; N18.6 End stage renal disease; L89.154 Pressure ulcer of sacral region, stage 4; J18.1 Lobar pneumonia, unspecified organism; I12.0 Hypertensive chronic kidney disease with stage 5 chronic kidney disease or end stage renal disease; E11.22 Type 2 diabetes mellitus with diabetic chronic kidney disease; E11.51 Type 2 diabetes mellitus with diabetic peripheral angiopathy without gangrene; E11.42 Type 2 diabetes mellitus with diabetic polyneuropathy; M81.0 Age-related osteoporosis without current pathological fracture; D63.1 Anemia in chronic kidney disease; L89.619 Pressure ulcer of right heel, unspecified stage; F32.9 Major depressive disorder, single episode, unspecified; Z99.2 Dependence on renal dialysis; Z95.1 Presence of aortocoronary bypass graft; Z89.512 Acquired absence of left leg below knee; I69.354 Hemiplegia and hemiparesis following cerebral infarction affecting left non-dominant side; Z89.511 Acquired absence of right leg below knee; Z79.4 Long term (current) use of insulin; Z88.8 Allergy status to other drugs, medicaments and biological substances; Z88.1 Allergy status to other antibiotic agents; Z91.013 Allergy to seafood; Z93.3 Colostomy status; Z68.31 Body mass index [BMI] 31.0-31.9, adult; Z90.49 Acquired absence of other specified parts of digestive tract; Z74.01 Bed confinement status; Z79.899 Other long term (current) drug therapy
CPT/HCPCS: 36415; 71010; 80048; 80053; 80202-TC; 82150-TC; 82962; 83605; 83690-TC; 84100-TC; 85025; 85610-TC; 85730-TC; 86886; 86900; 86901; 87040-TC; 87081; 90935; 90937; 93005; 94640; 94760; 96360; 99285; A4409; A5061; A6550; C1751; J1200; J1815; J1956; J2250; J2270; J2405; J2704; J3370; J7030; J7050; J7060; J7512; Q0163

== ENCOUNTER 2017-05-09 20:26 | Inpatient (IN) | payer MEDICAID, OTHER ==
[~2017-05-09] VITALS: Ht 157.5 cm; Wt 82.6 kg
[~2017-05-09 20:26] MED LIST changes: +ALPR0.5T8; -FOLI0.8T2 PO; -INSU3INS5 SQ; +PRED10TA PO; +ZOLP5TAB7 PO
[2017-05-09 20:30] VITALS: BP_SYST 140
[2017-05-09] MEDS ORDERED: IPRATROPIUM/ALBUTEROL SULFATE 3 ML AMPUL.NEB INH ONE (21:00)
[2017-05-09 21:41] LABS: BASOPHILS % (AUTO) 0.1 % (0.0-2.0); EOSINOPHILS # (AUTO) 0.4 K/uL (0.0-0.4); EOSINOPHILS % (AUTO) 3.6 % (0.0-4.0); HEMATOCRIT 28.4 % (36-48); HEMOGLOBIN 8.8 g/dL (12.0-16.0); LYMPHOCYTES # (AUTO) 1.5 K/uL (1.0-5.5); LYMPHOCYTES % (AUTO) 15.5 % (20.5-51.5); MEAN CORPUSCULAR HEMOGLOBIN 27 pg (27-31); MEAN CORPUSCULAR HGB CONC 31 % (32-36); MEAN CORPUSCULAR VOLUME 87 fL (79.0-98.0); MONOCYTES # (AUTO) 0.4 K/uL (0.0-1.0); NEUTROPHILS # (AUTO) 7.5 K/uL (1.8-7.7); NEUTROPHILS % (AUTO) 76.8 % (40.0-70.0); PLATELET COUNT (AUTO) 141 K/uL (130-430); RED BLOOD CELL COUNT(AUTO) 3.26 MIL/uL (4.2-6.2); RED CELL DISTRIBUTION WIDTH 18.2 % (9.0-15.0); WHITE BLOOD COUNT (AUTO) 9.8 K/uL (4.8-10.8)
[2017-05-09] MEDS ORDERED: PIPERACILLIN/TAZO 3.375 GM in NS 50 ML IV ONE (21:45)
[2017-05-09 21:49] LABS: ANION GAP 9 (5-15); CHLORIDE 96 mmol/L (98-107); CREATININE 2.85 mg/dL (0.55-1.30); GLUCOSE 229 mg/dL (70-99); POTASSIUM 3.3 mmol/L (3.5-5.1); SODIUM SERUM 132 mmol/L (136-145); UREA NITROGEN, BLOOD 31 mg/dL (8-21)
[2017-05-09 21:52] LABS: PROTHROMBIN TIME 11.1 SECS (9.5-12.5)
[2017-05-09 22:01] LABS: ALANINE AMINOTRANSFERASE 11 U/L (12-78); ALBUMIN 2.1 g/dL (3.4-4.8); ASPARTATE AMINOTRANSFERASE 15 U/L (10-37); TOTAL BILIRUBIN 0.3 mg/dL (0.0-1.0); TOTAL PROTEIN, SERUM 6.3 g/dL (6.4-8.3)
[2017-05-09] MEDS ORDERED: PIPERACILLIN/TAZOBACTAM 3.375 GM/VIAL (ZOSYN) IV ONE (22:24)
[2017-05-09] MEDS ORDERED: HYDROmorphone 1 MG INJ. 1 MG/ML AMPUL IVP ONE (22:45)
[2017-05-09 23:46] VITALS: BP_SYST 138
[2017-05-10] MEDS ORDERED: VANCOMYCIN HCL 500 MG in NS 100 ML IV SCH (00:15)
[2017-05-10] MEDS ORDERED: LEVOFLOXACIN 500 MG/D5W 100 ML IV ONE ×2 (00:45→01:11)
[2017-05-10] MEDS ORDERED: POTASSIUM CHLORIDE 20 MEQ TAB.PRT.SR PO ONE ×2 (00:45→01:15)
[2017-05-10 00:47] VITALS: BP_SYST 136
[2017-05-10] MEDS ORDERED: VANCOMYCIN HCL 500 MG/VIAL IV ONE (01:11)
[2017-05-10] MEDS: HYDROcodone/ACETAMIN 10-325 MG TAB PO PRN ×6 (01:39→22:57)
[2017-05-10 03:46] VITALS: BP_SYST 124
[2017-05-10] MEDS: ALBUTEROL SULFATE 0.083% 2.5 MG/3 ML VIAL.NEB INH SCH ×7 (04:17→23:19)
[2017-05-10 07:22] LABS: BASOPHILS % (AUTO) 0.1 % (0.0-2.0); EOSINOPHILS # (AUTO) 0.2 K/uL (0.0-0.4); EOSINOPHILS % (AUTO) 3.2 % (0.0-4.0); HEMATOCRIT 25.7 % (36-48); LYMPHOCYTES # (AUTO) 1.2 K/uL (1.0-5.5); LYMPHOCYTES % (AUTO) 14.8 % (20.5-51.5); MEAN CORPUSCULAR HEMOGLOBIN 28 pg (27-31); MEAN CORPUSCULAR HGB CONC 32 % (32-36); MEAN CORPUSCULAR VOLUME 87 fL (79.0-98.0); MONOCYTES # (AUTO) 0.3 K/uL (0.0-1.0); MONOCYTES % (AUTO) 4.1 % (1.7-9.3); NEUTROPHILS # (AUTO) 6.1 K/uL (1.8-7.7); NEUTROPHILS % (AUTO) 77.8 % (40.0-70.0); PLATELET COUNT (AUTO) 117 K/uL (130-430); RED BLOOD CELL COUNT(AUTO) 2.96 MIL/uL (4.2-6.2); RED CELL DISTRIBUTION WIDTH 17.6 % (9.0-15.0); WHITE BLOOD COUNT (AUTO) 7.8 K/uL (4.8-10.8)
[2017-05-10 07:23] LABS: HEMOGLOBIN 8.2 g/dL (12.0-16.0)
[2017-05-10 07:39] LABS: ANION GAP 8 (5-15); CALCIUM 7.9 mg/dL (8.4-11.0); CHLORIDE 98 mmol/L (98-107); CREATININE 2.88 mg/dL (0.55-1.30); GLUCOSE 152 mg/dL (70-99); POTASSIUM 4.2 mmol/L (3.5-5.1); SODIUM SERUM 131 mmol/L (136-145); UREA NITROGEN, BLOOD 33 mg/dL (8-21)
[2017-05-10 08:20] VITALS: BP_SYST 144
[2017-05-10] MEDS: amLODIPine BESYLATE 10 MG TABLET PO SCH (09:06)
[2017-05-10] MEDS: CARVEDILOL 6.25 MG TABLET (COREG) PO SCH ×2 (09:06→21:35)
[2017-05-10] MEDS: PREDNISONE 10 MG TABLET PO SCH (09:06)
[2017-05-10] MEDS: FERROUS SULFATE 325 MG TABLET.DR PO SCH ×2 (09:06→21:34)
[2017-05-10] MEDS: FAMOTIDINE 20 MG TABLET PO SCH ×2 (09:06→21:35)
[2017-05-10 11:56] VITALS: BP_SYST 113
[2017-05-10] MEDS: INSULIN REGULAR, HUMAN 100 UNITS/ML, 10 ML VIAL (novoLIN R) SUBCUT PRN ×3 (12:16→21:44)
[2017-05-10] MEDS ORDERED: BALSAM PERU/CASTOR OIL 60 GM OINT...G. TP PRN (15:15)
[2017-05-10] MEDS ORDERED: ZOLPIDEM TARTRATE 5 MG TABLET PO PRN (15:30)
[2017-05-10] MEDS ORDERED: OXYCODONE/ACETAMINOPHEN *10*mg/325 mg TABLET PO SCH (15:30)
[2017-05-10] MEDS ORDERED: MILK OF MAGNESIA 30 ML UDC PO PRN (15:30)
[2017-05-10 16:42] VITALS: BP_SYST 111
[2017-05-10 19:35] VITALS: BP_SYST 129
[2017-05-10] MEDS ORDERED: FERROUS SULFATE 325 MG TABLET.DR PO SCH (21:00)
[2017-05-10] MEDS ORDERED: FAMOTIDINE 20 MG TABLET PO SCH (21:00)
[2017-05-10] MEDS: LEVOFLOXACIN 250 MG/D5W 50 ML IV SCH (21:48)
[2017-05-11] VITALS (7 sets, daily range): BP systolic 127–144
[2017-05-11] MEDS: DIPHENHYDRAMINE HCL 50 MG CAPSULE PO PRN ×3 (01:35→20:54)
[2017-05-11] MEDS: HYDROcodone/ACETAMIN 5-325 MG TAB (NORCO/ VICODIN) PO PRN (01:36)
[2017-05-11] MEDS: ALBUTEROL SULFATE 0.083% 2.5 MG/3 ML VIAL.NEB INH SCH ×6 (03:00→23:15)
[2017-05-11] MEDS: HYDROcodone/ACETAMIN 10-325 MG TAB PO PRN ×3 (04:24→17:49)
[2017-05-11] MEDS: FAMOTIDINE 20 MG TABLET PO SCH ×2 (08:46→20:54)
[2017-05-11] MEDS: FERROUS SULFATE 325 MG TABLET.DR PO SCH ×2 (08:46→20:54)
[2017-05-11] MEDS: PREDNISONE 10 MG TABLET PO SCH (08:46)
[2017-05-11] MEDS: amLODIPine BESYLATE 10 MG TABLET PO SCH (08:47)
[2017-05-11] MEDS: CARVEDILOL 6.25 MG TABLET (COREG) PO SCH ×2 (08:47→20:54)
[2017-05-11] MEDS: BALSAM PERU/CASTOR OIL 60 GM OINT...G. TP SCH (08:56)
[2017-05-11] MEDS ORDERED: PREDNISONE 10 MG TABLET PO SCH (09:00)
[2017-05-11] MEDS ORDERED: amLODIPine BESYLATE 10 MG TABLET PO SCH (09:00)
[2017-05-11] MEDS ORDERED: CARVEDILOL 25 MG TABLET (COREG) PO SCH (09:00)
[2017-05-11] MEDS: INSULIN REGULAR, HUMAN 100 UNITS/ML, 10 ML VIAL (novoLIN R) SUBCUT PRN ×3 (11:30→20:57)
[2017-05-11] MEDS ORDERED: *HEPARIN PER PHARMACY XX ONE (15:00)
[2017-05-11] MEDS ORDERED: HEPARIN SODIUM,PORCINE 3000 UNITS/0.6 ML BOLUS IVP PRN (16:00)
[2017-05-11] MEDS ORDERED: HEPARIN SODIUM,PORCINE 5000 UNITS/ML VIAL IVP ONE (16:00)
[2017-05-11] MEDS: HEPARIN 25,000 UNITS in 250 ML PREMIX IV PRN (16:48)
[2017-05-11] MEDS ORDERED: WARFARIN SODIUM 5 MG TABLET PO ONE (18:00)
[2017-05-11] MEDS: LEVOFLOXACIN 250 MG/D5W 50 ML IV SCH (21:05)
[2017-05-12] MEDS: HEPARIN 25,000 UNITS in 250 ML PREMIX IV PRN ×2 (00:32→16:53)
[2017-05-12] MEDS: ZOLPIDEM TARTRATE 5 MG TABLET PO PRN (01:02)
[2017-05-12] MEDS: ALBUTEROL SULFATE 0.083% 2.5 MG/3 ML VIAL.NEB INH SCH ×6 (03:00→23:05)
[2017-05-12 03:41] VITALS: BP_SYST 150
[2017-05-12] MEDS: HYDROcodone/ACETAMIN 10-325 MG TAB PO PRN ×2 (04:45→16:58)
[2017-05-12 07:35] LABS: INR 1.1 (0.8-1.2); PROTHROMBIN TIME 11.4 SECS (9.5-12.5)
[2017-05-12 08:00] VITALS: BP_SYST 142
[2017-05-12 08:08] LABS: IRON (SERUM) 63 mcg/dL (37-145)
[2017-05-12 08:09] LABS: TOTAL IRON BIND. CAPACITY 90 ug/dL (250-450)
[2017-05-12] MEDS: FAMOTIDINE 20 MG TABLET PO SCH ×2 (08:25→20:52)
[2017-05-12] MEDS: CARVEDILOL 6.25 MG TABLET (COREG) PO SCH ×2 (08:26→20:57)
[2017-05-12] MEDS: PREDNISONE 10 MG TABLET PO SCH (08:26)
[2017-05-12] MEDS: FERROUS SULFATE 325 MG TABLET.DR PO SCH ×2 (08:26→20:52)
[2017-05-12] MEDS: amLODIPine BESYLATE 10 MG TABLET PO SCH (08:26)
[2017-05-12] MEDS: VANCOMYCIN HCL 750 MG in NS 250 ML IV SCH (08:31)
[2017-05-12] MEDS: HEPARIN SODIUM,PORCINE 2000 UNITS/0.4 ML BOLUS IVP PRN ×2 (08:46→16:00)
[2017-05-12] MEDS: BALSAM PERU/CASTOR OIL 60 GM OINT...G. TP SCH (09:25)
[2017-05-12] MEDS: INSULIN REGULAR, HUMAN 100 UNITS/ML, 10 ML VIAL (novoLIN R) SUBCUT PRN ×3 (12:37→21:06)
[2017-05-12 12:54] VITALS: BP_SYST 142
[2017-05-12 16:59] VITALS: BP_SYST 142
[2017-05-12] MEDS ORDERED: WARFARIN SODIUM 5 MG TABLET PO SCH (18:00)
[2017-05-12] MEDS: DIPHENHYDRAMINE HCL 50 MG CAPSULE PO PRN (18:53)
[2017-05-12 20:00] VITALS: BP_SYST 142
[2017-05-12] MEDS ORDERED: ALPRAZolam 0.25 MG TABLET PO ONE (20:30)
[2017-05-12] MEDS: LEVOFLOXACIN 250 MG/D5W 50 ML IV SCH (20:52)
[2017-05-13 00:37] VITALS: BP_SYST 145
[2017-05-13] MEDS: ALBUTEROL SULFATE 0.083% 2.5 MG/3 ML VIAL.NEB INH SCH ×6 (02:16→23:54)
[2017-05-13 05:20] VITALS: BP_SYST 99
[2017-05-13 06:46] LABS: BASOPHILS % (AUTO) 0.1 % (0.0-2.0); EOSINOPHILS # (AUTO) 0.4 K/uL (0.0-0.4); EOSINOPHILS % (AUTO) 6.8 % (0.0-4.0); LYMPHOCYTES # (AUTO) 1.3 K/uL (1.0-5.5); LYMPHOCYTES % (AUTO) 22.1 % (20.5-51.5); MEAN CORPUSCULAR HEMOGLOBIN 27 pg (27-31); MEAN CORPUSCULAR HGB CONC 31 % (32-36); MEAN CORPUSCULAR VOLUME 86 fL (79.0-98.0); MONOCYTES # (AUTO) 0.4 K/uL (0.0-1.0); MONOCYTES % (AUTO) 7.1 % (1.7-9.3); NEUTROPHILS # (AUTO) 3.9 K/uL (1.8-7.7); NEUTROPHILS % (AUTO) 63.9 % (40.0-70.0); PLATELET COUNT (AUTO) 127 K/uL (130-430); RED BLOOD CELL COUNT(AUTO) 2.66 MIL/uL (4.2-6.2); RED CELL DISTRIBUTION WIDTH 16.8 % (9.0-15.0)
[2017-05-13 06:58] LABS: INR 1.1 (0.8-1.2); PROTHROMBIN TIME 11.4 SECS (9.5-12.5)
[2017-05-13 07:31] LABS: HEMATOCRIT 22.9 % (36-48); HEMOGLOBIN 7.2 g/dL (12.0-16.0)
[2017-05-13 08:00] VITALS: BP_SYST 144
[2017-05-13] MEDS: FERROUS SULFATE 325 MG TABLET.DR PO SCH ×2 (09:00→20:57)
[2017-05-13] MEDS: PREDNISONE 10 MG TABLET PO SCH (09:00)
[2017-05-13] MEDS: BALSAM PERU/CASTOR OIL 60 GM OINT...G. TP SCH (09:00)
[2017-05-13] MEDS: FAMOTIDINE 20 MG TABLET PO SCH ×2 (09:00→20:55)
[2017-05-13] MEDS: CARVEDILOL 6.25 MG TABLET (COREG) PO SCH ×2 (09:26→20:55)
[2017-05-13] MEDS: amLODIPine BESYLATE 10 MG TABLET PO SCH (09:26)
[2017-05-13 11:44] LABS: FOLATE (FOLIC ACID) 7.4 ng/mL (>3.0)
[2017-05-13 15:39] VITALS: BP_SYST 144
[2017-05-13] MEDS ORDERED: LR 1,000 ML IV SCH (16:08)
[2017-05-13] MEDS ORDERED: HYDROmorphone 1 MG INJ. 1 MG/ML AMPUL IVP PRN (16:15)
[2017-05-13] MEDS ORDERED: MEPERIDINE HCL/PF 25 MG/ML DISP.SYRIN IVP PRN (16:15)
[2017-05-13] MEDS ORDERED: HYDROmorphone 2 MG/ML VIAL IVP PRN ×2 (16:15)
[2017-05-13] MEDS ORDERED: HYDROmorphone 1 MG INJ. 1 MG/ML AMPUL ONE (16:27)
[2017-05-13] MEDS ORDERED: EPOETIN ALFA 4,000 UNITS/ML VIAL SUBCUT SCH (17:00)
[2017-05-13 19:30] VITALS: BP_SYST 135
[2017-05-13] MEDS: ZOLPIDEM TARTRATE 5 MG TABLET PO PRN (20:55)
[2017-05-13] MEDS: INSULIN REGULAR, HUMAN 100 UNITS/ML, 10 ML VIAL (novoLIN R) SUBCUT PRN (21:07)
[2017-05-13] MEDS: HYDROcodone/ACETAMIN 10-325 MG TAB PO PRN (21:13)
[2017-05-13] MEDS: LEVOFLOXACIN 250 MG/D5W 50 ML IV SCH (22:03)
[2017-05-13 23:54] VITALS: BP_SYST 155
[2017-05-14] MEDS: HYDROcodone/ACETAMIN 10-325 MG TAB PO PRN ×4 (01:44→20:37)
[2017-05-14] MEDS: ALBUTEROL SULFATE 0.083% 2.5 MG/3 ML VIAL.NEB INH SCH ×6 (02:18→23:55)
[2017-05-14 04:14] VITALS: BP_SYST 139
[2017-05-14 07:06] LABS: BASOPHILS % (AUTO) 0.3 % (0.0-2.0); EOSINOPHILS # (AUTO) 0.5 K/uL (0.0-0.4); EOSINOPHILS % (AUTO) 8.3 % (0.0-4.0); HEMATOCRIT 29.4 % (36-48); HEMOGLOBIN 9.6 g/dL (12.0-16.0); LYMPHOCYTES # (AUTO) 1.5 K/uL (1.0-5.5); MEAN CORPUSCULAR HEMOGLOBIN 29 pg (27-31); MEAN CORPUSCULAR HGB CONC 33 % (32-36); MEAN CORPUSCULAR VOLUME 87 fL (79.0-98.0); MONOCYTES # (AUTO) 0.5 K/uL (0.0-1.0); MONOCYTES % (AUTO) 7.7 % (1.7-9.3); NEUTROPHILS # (AUTO) 3.9 K/uL (1.8-7.7); NEUTROPHILS % (AUTO) 60.7 % (40.0-70.0); PLATELET COUNT (AUTO) 111 K/uL (130-430); RED BLOOD CELL COUNT(AUTO) 3.36 MIL/uL (4.2-6.2); RED CELL DISTRIBUTION WIDTH 15.4 % (9.0-15.0); WHITE BLOOD COUNT (AUTO) 6.4 K/uL (4.8-10.8)
[2017-05-14 07:19] LABS: INR 1.1 (0.8-1.2); PROTHROMBIN TIME 11.8 SECS (9.5-12.5)
[2017-05-14 08:00] VITALS: BP_SYST 156
[2017-05-14] MEDS: DIPHENHYDRAMINE HCL 50 MG CAPSULE PO PRN (09:37)
[2017-05-14] MEDS: PREDNISONE 10 MG TABLET PO SCH (09:37)
[2017-05-14] MEDS: FERROUS SULFATE 325 MG TABLET.DR PO SCH (09:37)
[2017-05-14] MEDS: VANCOMYCIN HCL 750 MG in NS 250 ML IV SCH (09:38)
[2017-05-14] MEDS: FAMOTIDINE 20 MG TABLET PO SCH (09:38)
[2017-05-14] MEDS: CARVEDILOL 6.25 MG TABLET (COREG) PO SCH (09:44)
[2017-05-14] MEDS: BALSAM PERU/CASTOR OIL 60 GM OINT...G. TP SCH (11:40)
[2017-05-14] MEDS: INSULIN REGULAR, HUMAN 100 UNITS/ML, 10 ML VIAL (novoLIN R) SUBCUT PRN (11:47)
[2017-05-14 12:23] VITALS: BP_SYST 149
[2017-05-14] MEDS: HYDROcodone/ACETAMIN 5-325 MG TAB (NORCO/ VICODIN) PO PRN (15:47)
[2017-05-14 16:32] VITALS: BP_SYST 146
[2017-05-14] MEDS: amLODIPine BESYLATE 10 MG TABLET PO SCH (18:33)
[2017-05-14 20:00] VITALS: BP_SYST 142
[2017-05-15] MEDS: LEVOFLOXACIN 250 MG/D5W 50 ML IV SCH (00:11)
[2017-05-15] MEDS: FERROUS SULFATE 325 MG TABLET.DR PO SCH ×2 (00:14→08:22)
[2017-05-15] MEDS: FAMOTIDINE 20 MG TABLET PO SCH ×2 (00:14→08:23)
[2017-05-15] MEDS: DIPHENHYDRAMINE HCL 50 MG CAPSULE PO PRN ×2 (00:14→08:23)
[2017-05-15] MEDS: CARVEDILOL 6.25 MG TABLET (COREG) PO SCH ×2 (00:14→08:23)
[2017-05-15] MEDS: INSULIN REGULAR, HUMAN 100 UNITS/ML, 10 ML VIAL (novoLIN R) SUBCUT PRN ×2 (00:24→06:35)
[2017-05-15 00:32] VITALS: BP_SYST 154
[2017-05-15] MEDS: ALBUTEROL SULFATE 0.083% 2.5 MG/3 ML VIAL.NEB INH SCH ×3 (03:00→11:44)
[2017-05-15 03:22] VITALS: BP_SYST 144
[2017-05-15 08:00] VITALS: BP_SYST 143
[2017-05-15] MEDS: PREDNISONE 10 MG TABLET PO SCH (08:22)
[2017-05-15] MEDS: BALSAM PERU/CASTOR OIL 60 GM OINT...G. TP SCH (08:24)
[2017-05-15] MEDS: amLODIPine BESYLATE 10 MG TABLET PO SCH (08:24)
[2017-05-15] MEDS: HYDROcodone/ACETAMIN 5-325 MG TAB (NORCO/ VICODIN) PO PRN ×2 (08:34→13:50)
[2017-05-15] MEDS: HYDROcodone/ACETAMIN 10-325 MG TAB PO PRN (10:40)
[2017-05-15 12:08] VITALS: BP_SYST 149
[2017-05-15 14:00] VITALS: BP_SYST 140
== END 2017-05-15 15:22 | DRG 710 ==
LOC: SED 20:26 → STU 23:05
PROVIDERS: ADMIT Family Medicine; ATTEND Family Medicine
PROC: 5A1D60Z (ICD-10-PCS; 2017-05-10)
PROC: 30233N1 Transfusion of Nonautologous Red Blood Cells into Peripheral Vein, Percutaneous Approach (ICD-10-PCS; principal; 2017-05-13 13:30)
PROC: 0QB10ZZ Excision of Sacrum, Open Approach (ICD-10-PCS; 2017-05-14)
PROC: 0JBR0ZZ Excision of Left Foot Subcutaneous Tissue and Fascia, Open Approach (ICD-10-PCS; 2017-05-14)
DX: A41.9 Sepsis, unspecified organism (principal); J69.0 Pneumonitis due to inhalation of food and vomit; L89.154 Pressure ulcer of sacral region, stage 4; E87.2 Acidosis; I82.A12 Acute embolism and thrombosis of left axillary vein; N18.6 End stage renal disease; E11.22 Type 2 diabetes mellitus with diabetic chronic kidney disease; K92.2 Gastrointestinal hemorrhage, unspecified; L89.623 Pressure ulcer of left heel, stage 3; I12.0 Hypertensive chronic kidney disease with stage 5 chronic kidney disease or end stage renal disease; E11.51 Type 2 diabetes mellitus with diabetic peripheral angiopathy without gangrene; L89.619 Pressure ulcer of right heel, unspecified stage; D64.9 Anemia, unspecified; M81.0 Age-related osteoporosis without current pathological fracture; L03.312 Cellulitis of back [any part except buttock and flank]; E11.42 Type 2 diabetes mellitus with diabetic polyneuropathy; M19.90 Unspecified osteoarthritis, unspecified site; Z87.440 Personal history of urinary (tract) infections; Z86.73 Personal history of transient ischemic attack (TIA), and cerebral infarction without residual deficits; Z89.512 Acquired absence of left leg below knee; Z99.2 Dependence on renal dialysis; Z87.01 Personal history of pneumonia (recurrent); Z88.8 Allergy status to other drugs, medicaments and biological substances; Z88.1 Allergy status to other antibiotic agents; Z91.013 Allergy to seafood
CPT/HCPCS: 36415; 71010; 80048; 80053; 82272; 82607; 82728; 82746; 82962; 83540-TC; 83550-TC; 83605; 83880; 84484; 85025; 85044-TC; 85610-TC; 85730-TC; 86886; 86900; 86901; 86920; 87040-TC; 87081; 90935; 90937; 93005; 93971; 94640; 94760; 96365; 96375; 99285; A4409; A5061; A6550; J0885; J1170; J1644; J1815; J1956; J2543; J3370; J7030; J7040; J7050; J7120; J7512; P9021; Q0163